=== PATIENT | female | born 1955 | race Caucasian/White ===

== ENCOUNTER 2024-10-12 13:48 | Emergency (ER) | payer MEDICARE, SELFPAY ==
[2024-10-12 13:50] VITALS: BP 187/108; BMI 32.9
--- NOTE | 2024-10-12 14:25 | ED.GENMED ---
History of Present Illness
General
Chief Complaint: Fall
Source: patient
Exam Limitations: none
Time Seen by Provider: 10/12/24 13:51
Nursing documentation reviewed up to this point in time: agreed with
History of Present Illness
History of Present Illness:
The patient is a pleasant 69-year-old female who tripped and fell over a curb, hitting the back of her head from the standing position onto blacktop just prior to arrival. Patient did not lose consciousness. Patient complains of a mild headache,
specifically at the back of her head where she has a hematoma. She denies vision changes, nausea, vomiting and dizziness. She denies neck pain and back pain. Paramedics were called and brought her in by ambulance. 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 She is not on any blood thinners. She denies hip pain and pelvic pain.
Past History
Past History
ED Past Medical History: Psychiatric and Other (HIV positive)
ED Past Surgical History: Other
Social History
Tobacco: Other
Alcohol: Other
Drug: Other
Personal: Other
Living: other
Employment: Employed
Family History
Family History: Other
Review of Systems
Review of Systems
Allergies reviewed?: Yes
All Other Systems: ROS reviewed and negative except as documented in HPI and ROS
Constitutional: Reports no symptoms
EENT: Reports no symptoms
Respiratory: Reports no symptoms
Cardiac: Reports no symptoms
ABD/GI: Reports no symptoms
: Reports no symptoms
Musculoskeletal: Reports no symptoms
Skin: Reports other (Scalp skin abrasion)
Neurological: Reports headache
Endocrine: Reports no symptoms
Hematologic/Lymphatic: Reports no symptoms
Psychiatric: Reports no symptoms
Phy Exam
Physical Exam
Physical Exam:
Physical Exam
General: no apparent distress, not acutely ill, patient fully awake, alert and speaking. Left parietal scalp hematoma with overlying abrasion
Neck: supple. Nontender
Heart: s1/s2 regular rate and rhythm, no murmur. equal radial pulses. No chest wall tenderness
Lungs: no acute respiratory distress. clear bilaterally
Abdomen: Soft, nontender no vertebral spine tenderness
Neuro: alert and oriented. no focal neurological deficits
Skin: no rash
Psychiatric: well kept. interactive and cooperative
Extremities: Atraumatic. Nontender upper and lower extremities. No pelvic or hip tenderness
Course
Orders/Labs/Results
Orders:
Orders
10/12/24 14:24
Acetaminophen [Tylenol] 1,000 mg PO NOW STA
10/12/24 14:25
CT Head W/o Iv Contrast Urgent
Comment:
Reason For Exam: fall, hit head
Vital Signs
Initial and Last Documented VS:
Initial Vital Signs
Temp Pulse Resp BP Pulse Ox
98.3 F 76 18 187/108 97
10/12/24 13:50 10/12/24 13:50 10/12/24 13:50 10/12/24 13:50 10/12/24 13:50
Last Documented Vital Signs
Temp Pulse Resp BP Pulse Ox
98.3 F 76 18 187/108 97
10/12/24 13:50 10/12/24 13:50 10/12/24 13:50 10/12/24 13:50 10/12/24 13:50
MDM/Problems Addressed
Differential Diagnosis Includes:
Intracranial hematoma, concussion, scalp hematoma
MDM/Problems Addressed:
Patient presents with acute scalp pain and headache after a trip and fall and hitting her head
Acute Exacerbation and/or Progression of Chronic Illness:
Patient is acutely hypertensive, however, she is uncomfortable and anxious
Acute Exacerbation and/or Progression of Chronic Illness: HTN
*Pulse Oximetry
Patient hypoxic: no
*EKG
Interpreted by ED Provider?: NA
*Mincemeat Maker Interpretation
Rate: Mincemeat Maker- N/A
*Critical Care Note
Total Time (30-74mins, 75-104mins- exclusive of procedures): Not Applicable
Data Reviewed
Source: patient and other (Work colleague who is at the bedside)
ED Attending Note
-
Portions of this chart may have been created with voice recognition software.� Occasional wrong word or��sound alike� substitutions may have occurred due to the inherent limitations of voice recognition software.
Discharge Plan
Interventions
Interventions:
*Risk Screen - Suicide Last Done: 10/12/24 13:50
*Neglect/Abuse Screening Last Done: 10/12/24 13:50
*ED COVID-19 Vaccine History Last Done: 10/12/24 13:50
ED-Musculoskeletal Assessment Last Done: 10/12/24 13:50
ED- Neurological Assessment Last Done: 10/12/24 13:50
ED-Skin Assessment Last Done: 10/12/24 13:55
Discharge Date and Time
Print Language: YAKUT
[2024-10-12] MEDS: TYLENOL 1000 MG PO (14:28)
[2024-10-12 15:46] VITALS: BP 171/80
--- NOTE | 2024-10-12 16:43 | ED.GENMED ---
History of Present Illness
General
Chief Complaint: Fall
Source: patient
Exam Limitations: none
Time Seen by Provider: 10/12/24 13:51
Nursing documentation reviewed up to this point in time: agreed with
History of Present Illness
History of Present Illness:
See chart from same visit. Previous chart was signed prematurely before I was able to finish it.
Past History
Past History
ED Past Medical History: Psychiatric and Other (HIV positive)
ED Past Surgical History: Other
Social History
Tobacco: Other
Alcohol: Other
Drug: Other
Personal: Other
Living: other
Employment: Employed
Family History
Family History: Other
Review of Systems
Review of Systems
Allergies reviewed?: Yes
All Other Systems: Not applicable
Phy Exam
Physical Exam
Physical Exam:
.. See chart from same ER visit
Course
Orders/Labs/Results
Orders:
Orders
10/12/24 14:24
Acetaminophen [Tylenol] 1,000 mg PO NOW STA
10/12/24 14:25
CT Head W/o Iv Contrast Urgent
Comment:
Reason For Exam: fall, hit head
Vital Signs
Initial and Last Documented VS:
Initial Vital Signs
Temp Pulse Resp BP Pulse Ox
98.3 F 76 18 187/108 97
10/12/24 13:50 10/12/24 13:50 10/12/24 13:50 10/12/24 13:50 10/12/24 13:50
Last Documented Vital Signs
Temp Pulse Resp BP Pulse Ox
98.3 F 65 18 171/80 98
10/12/24 13:50 10/12/24 15:46 10/12/24 15:46 10/12/24 15:46 10/12/24 15:46
*Radiology
Radiology exam reviewed: radiology read reviewed
*Pulse Oximetry
Patient hypoxic: no
*EKG
Interpreted by ED Provider?: NA
*Stone Polisher Machine Interpretation
Rate: Stone Polisher Machine- N/A
*Critical Care Note
Total Time (30-74mins, 75-104mins- exclusive of procedures): Not Applicable
Data Reviewed
Source: patient
Patient Management
Social determinants of health affecting care: Living situation and Strong social support
Escalation/DeEscalation of care consider admission/obs:
Patient remains well, conversational and smiling. Scalp wound was cleaned. Patient has deep abrasion without a specific laceration to close. Patient instructed to apply pressure to her scalp for any bleeding, however, bleeding is well-controlled
here. Patient encouraged to keep her wound dry for about 72 hours for a good scab to form before washing her hair.
ED Attending Note
-
Portions of this chart may have been created with voice recognition software.� Occasional wrong word or��sound alike� substitutions may have occurred due to the inherent limitations of voice recognition software.
Discharge Plan
Departure
Patient Disposition: Home (Routine Discharge)
Date of Disposition: 10/12/24
Time of Disposition: 16:40
Patient with high blood pressure during this ER visit?: Yes
Condition: Good
Covid-19: Not Applicable
Discharge Problem:
Closed head injury, Abrasion of scalp
Instructions: Head Injury in Adults (DC), Abrasions ED, BLOOD PRESSURE
Referrals:
Nic Kc MD [Family Provider] -
Activity Restrictions/Additional Instructions:
Please see your primary care doctor in about 3 to 4 days to have your blood pressure rechecked. Return for any severe headache or vomiting. Please limit your screen time (cell phone, iPad) to 90 minutes or less each day for the next 7 to 10 days
to rest your eyes. Keep your scalp wound dry for about 3 days to allow a good scab to form and then you can wash your hair gently.
Interventions
Interventions:
*Risk Screen - Suicide Last Done: 10/12/24 13:50
*General Assessment Last Done: 10/12/24 15:00
*Neglect/Abuse Screening Last Done: 10/12/24 13:50
*ED COVID-19 Vaccine History Last Done: 10/12/24 13:50
ED-Musculoskeletal Assessment Last Done: 10/12/24 13:50
ED- Neurological Assessment Last Done: 10/12/24 13:50
ED-Skin Assessment Last Done: 10/12/24 13:55
Discharge Date and Time
Print Language: [email or web address]
== END 2024-10-12 16:48 | disposition home or self-care (01) ==
LOC: EMR 13:48
PROVIDERS: EMERGENCY PHYSICIAN Emergency Medicine; FAMILY PHYSICIAN Family Medicine
DX: S09.90XA Unspecified injury of head, initial encounter (principal); S00.01XA Abrasion of scalp, initial encounter; W01.0XXA Fall on same level from slipping, tripping and stumbling without subsequent striking against object, initial encounter; I10 Essential (primary) hypertension; Z21 Asymptomatic human immunodeficiency virus [HIV] infection status
CPT/HCPCS: 99284; 70450